=== PATIENT | female | born 1960 | race Two or more races ===

== ENCOUNTER 2020-10-28 09:39 | Inpatient (IN) | payer OTHER ==
[~2020-10-28] VITALS: Ht 170.2 cm; Wt 5.7 kg
--- NOTE | 2020-10-28 10:13 | NUR ---
SE RECIBE PTE. ALERTA, DESORIENTADA, ACOMPANADA POR FAMILIAR, EL CUAL REFIERE QUE PTE DESDE ESTA MANANA SE ENCUENTRA DESORIENTADA, CON AZUCAR CHERELLE Y PRESIONES ALTAS. SE FARHAN SIGNOS VITALES MANUALES, SE REALIZA DEXTRO EL CUAL SALE MAS DE 600 MG/DL Y EKG SE PRESENTA A RACHID. JIMENEZ LA CUAL VERBALIZA COLOCAR PTE. EN CHEST PAIN.
--- NOTE | 2020-10-28 10:33 | NUR ---
PACIENTE EVALUADA POR DRA. JIMENEZ QUIEN ORDENA TRATAMIENTO. SE EDUCA A PTE Y FAMILIAR SOBRE ORDENES MEDICAS Y REFIERE COMPRENDER. SE CANALIZA Y SE COLECTAN MUESTRAS DE LABORATORIO BAJO MEDIDAS ASEPTICAS. SE ADMINISTRAN MEDICAMENTOS BELKYS ORDEN MEDICA LOS CUALES PTE AL MOMENTO NO PRESENTA REACCION ADVERSA. PACIENTE CONECTADA A MONITOR CARDIACO Y OXIMETRIA DE PULSO EN AREA DE CHEST PAIN. ABG'S REALIZADOS POR MR. MACHADO.
--- NOTE | 2020-10-28 10:46 | NUR ---
SE UBICA PACIENTE EN CAMA #18. SE CONECTA A MONITOR CARDIACO, SAUTORMETRIA ARACELY, SE COLOCA NASAL CANULA BELKYS ORDEN MEDICA. SE ADMINISTRAN MEDICAMENTOS Y SE EXTRAEN MUESTRAS DE VERO BELKYS ORDEN MEDICA. SE INSERTA HUTTON TOMANDO MEDIDAS ESTERILES Y ASEPTICAS. SE ORIENTA A PACIENTE Y FAMILIARES SOBRE MEDIDAS DE SEGURIDAD Y PROTOCOLO DE UNIDAD DE DOLOR DE PECHO. PACIENTE SE ENCUENTRA DESPIERTA Y ALERTA. PACIENTE INCAPAZ DE CONTESTAR PREGUNTAS, SE ENCUENTRA [place] EN ORACIONES COMPLETAS CASE SON INCOHRENTES.
[2020-12-08] MEDS ORDERED: DOLOGEN CAPLET1 EACH PO (11:44)
[2020-12-08] MEDS ORDERED: CLEOCIN HCL300 MG PO (11:44)
[2020-12-08] MEDS ORDERED: PROBIOTIC1 EAC4 PO (11:44)
== END 2020-11-01 18:08 | disposition home or self-care (01) | DRG 64 ==
LOC: ER 09:39 → EDSEX 10:25 → ICU-2 15:52
PROVIDERS: ADMIT Internal Medicine; ATTEND Internal Medicine
PROC: B020ZZZ Computerized Tomography (CT Scan) of Brain (ICD-10-PCS; principal; 2020-10-28)
PROC: B24BYZZ Ultrasonography of Heart with Aorta using Other Contrast (ICD-10-PCS; 2020-10-28)
PROC: B345ZZZ Ultrasonography of Bilateral Common Carotid Arteries (ICD-10-PCS; 2020-10-28)
PROC: B348ZZZ Ultrasonography of Bilateral Internal Carotid Arteries (ICD-10-PCS; 2020-10-28)
PROC: B030ZZZ Magnetic Resonance Imaging (MRI) of Brain (ICD-10-PCS; 2020-10-28)
DX: I63.81 Other cerebral infarction due to occlusion or stenosis of small artery (principal); E11.00 Type 2 diabetes mellitus with hyperosmolarity without nonketotic hyperglycemic-hyperosmolar coma (NKHHC); I69.320 Aphasia following cerebral infarction; R41.0 Disorientation, unspecified; E11.65 Type 2 diabetes mellitus with hyperglycemia; I10 Essential (primary) hypertension
CPT/HCPCS: 70544

== ENCOUNTER → 2020-12-08 | Emergency (ER) | payer OTHER ==
[~2020-12-08] VITALS: Ht 162.6 cm; Wt 71.7 kg
[~2020-12-08] MED LIST: CLEOCIN HCL300 MG PO; DOLOGEN CAPLET1 EACH PO; PROBIOTIC1 EAC4 PO
== END | disposition home or self-care (01) ==
LOC: ER 11:16
DX: K04.7 Periapical abscess without sinus (principal); E11.9 Type 2 diabetes mellitus without complications; I10 Essential (primary) hypertension